=== PATIENT | male | born 1960 | race Caucasian/White ===

== ENCOUNTER 2021-01-19 10:50 | Outpatient (REF) | payer MEDICARE, MEDICAID, SELFPAY ==
--- NOTE | ~2021-01-19 | XR_ITS ---
EXAMINATION: XR ABDOMEN KUB CLINICAL INDICATION: Renal calculus COMPARISON: Renal ultrasound August 15, 2019 and KUB July 31, 2019 TECHNIQUE: Single view, two film KUB of the abdomen was obtained. Overlying stool limits sensitivity for small renal calculi. FINDINGS: Left ureteral stent in expected position. No definitive renal calculi project over either renal shadow or the expected course of either ureter. Ovoid 2.6 cm density projecting over the bladder is nonspecific. Nonobstructive bowel gas pattern. No acute osseous abnormality. XR/XR KUB IMPRESSION: 1. No definitive renal calculi. 2. Ovoid 2.6 cm density projecting over the bladder is nonspecific. This may represent nothing more than superimposed stool, however, a bladder calculus is not excluded. This may be further evaluated with CT imaging of the abdomen and pelvis.
== END 2021-01-19 10:51 | disposition home or self-care (01) ==
LOC: HO.XRAY 10:50
PROVIDERS: PCP Internal Medicine; Visit Provider Urology
DX: N20.0 Calculus of kidney (principal); N20.1 Calculus of ureter
CPT/HCPCS: 74018; 81002; 99212